=== PATIENT | female | born 1990 | race Caucasian/White ===

== ENCOUNTER 2018-01-09 19:29 | Inpatient (IN) | payer OTHER ==
[~2018-01-09] VITALS: Ht 165.1 cm; Wt 59.0 kg
[~2018-01-09 19:29] MED LIST: PREN-127 PO
[2018-01-09 19:46] VITALS: BP 120/60
[2018-01-09] MEDS ORDERED: FAMOTIDINE(*) 20MG/50ML PREMIX 50 ML IVPB PRN ×2 (20:49)
[2018-01-09] MEDS ORDERED: ACETAMINOPHEN 325 MG TAB PO PRN (20:50)
[2018-01-09] MEDS ORDERED: FLUSH 10 ML SYR IVP PRN ×2 (20:50)
[2018-01-09] MEDS ORDERED: LIDOCAINE 1% LOCAL 300 MG/30ML INJ PRN (20:50)
[2018-01-09] MEDS ORDERED: METOCLOPRAMIDE 10 MG/2 ML SDV IVP PRN ×2 (20:50)
[2018-01-09] MEDS ORDERED: TERBUTALINE SULF 1 MG/ML VIAL SUBQ PRN (20:50)
[2018-01-09] MEDS ORDERED: ONDANSETRON 4 MG ODT TABDP SL PRN (20:50)
[2018-01-09] MEDS ORDERED: DINOPROSTONE 10 MG INSERT PV ONE (20:50)
[2018-01-09] MEDS ORDERED: LIDOCAINE/SOD BICARB 8.4% SYR SC PRN (20:50)
[2018-01-09 21:12] LABS: PLATELET COUNT, AUTOMATED 203 K/uL (150-450)
[2018-01-09] MEDS: DLR(*) 1000 ML BAG 1,000 ML IV SCH (21:30)
--- NOTE | 2018-01-09 22:41 | RADIOLOGY IMAGING REPORT ---
FACILITY: [facility] PATIENT NAME: Shamar Miller : 1990 MR: [id number] V: [id number] EXAM DATE: ORDERING PHYSICIAN: MITCH DAVIDSON TECHNOLOGIST: Location: [facility] Patient: Shamar Miller : 1990 Visit/Account:[id number] Date of Sevice: 01/09/2018 biophysical profile Indication: Nonreactive NST. Reported gestational age 39 weeks 2 days. Comparison: None available Findings: breathing movement: 2/2 Gross body movement: 2/2 tone: 2/2 Amniotic fluid volume: 2/2 There is a left anterior placenta without evidence of placenta previa. There is a single live intraut erine gestation with heart tones measuring 121 beats per minute. Four quadrant amniotic fluid index is normal measuring 17.97 cm. The largest pocket measures 5.6 cm. IMPRESSION: 1. Normal biophysical profile. 2. Upper limits of normal amniotic fluid index. Report Dictated By: Cleveland Mccullough at 01/09/2018 10:33 PM Report E-Signed By: Cleveland Mccullough at 01/09/2018 10:36 PM [id number]
[2018-01-09 22:43] VITALS: BP 120/60; Ht 165.1 cm; Wt 59.0 kg
[2018-01-10] MEDS: LR(*) 1000 ML BAG 1,000 ML IV PRN ×2 (01:36→13:23)
[2018-01-10] MEDS: DLR(*) 1000 ML BAG 1,000 ML IV SCH (04:49)
[2018-01-10] MEDS ORDERED: BUPIVACAINE 0.5% INJ 30ML VIAL EPI PRN (13:15)
[2018-01-10] MEDS ORDERED: fentaNYL CITR 100 MCG/2 ML AMP IT PRN (13:15)
[2018-01-10] MEDS ORDERED: BUPIVACAINE 0.25% MPF INJ EPI PRN (13:15)
[2018-01-10] MEDS ORDERED: FENTANYL/ROPIVACAINE 100 ML BAG EPI PRN (13:15)
[2018-01-10] MEDS ORDERED: ePHEDrine 25 MG/5 ML DISP.SYR IVP PRN (13:15)
[2018-01-10] MEDS ORDERED: LIDO/EPI 2% MPF 1:200,000 20ML EPI PRN (13:15)
[2018-01-10] MEDS ORDERED: LIDOCAINE/PF 2% 200MG/10ML AMP 200 MG/10 ML AMPUL EPI PRN (13:15)
[2018-01-10] MEDS ORDERED: OXYTOCIN 30 UNIT/D5LR 500 ML 500 ML IV PRN (13:24)
[2018-01-10] MEDS ORDERED: OXYTOCIN 30 UNIT/D5LR 500 ML 500 ML ONE (13:34)
[2018-01-10] MEDS ORDERED: EPIDURAL KEYS XX PRN (14:00)
--- NOTE | 2018-01-10 14:47 | Procedure Note ---
Anesthetic Placement Note Anesthesia Plan: LEB Permit for Anesthesia Signed: Yes Anesthesia Technique: Patient Sitting Anesthesia Prep: Chlorhexidine Interspace: L 3-4 Local Anesthetic: 1% Lidocaine Amount Local - cc's: 3 Anesthesia Needle: 17g Touhy/Schliff Anesthesia Attempts: 1 Loss of Resistance: Air Depth of [place] (cm): 3.5 Cerebral Spinal Fluid: No Catheter Insertion (cm): 5 Catheter Type: Barton - Spring Wound Epidural Dressing: Tegaderm Anesthesia Tray: Lot Number ([id number]), Expiration Date (2018-07-13), Reference Number ([id number]) Comment: Epidural placed without difficulty. I entered the room at 1335 and the catheter was placed at 1345 with test dose at 1346 was negative. Bolus of 12 mls of 0.125% ropivicaine with fentanyl bag. Continous infusion of same started at 1407. Pain score of 0. Anesthesia Medications: Epidural Test Dose: Dose - mL (5 ml), Negative Epidural Loading Dose: 0.2% Ropivicaine, With Fentanyl 2mcg/ml, Dose - ml (12 ml), Time (1352) Epidural Infusion: 0.2% Ropivicaine, With Fentanyl 2mcg/ml, Start Time: (1407) Epidural Pump Setting: Bolus Dose - mL (5), Lockout - Minutes (10), Maintenance Rate - mL/hr (12), Maximum per Hour - mL (22) Complications: None SUSANNA PORTILLO CRNA Jan 10, 2018 14:47
--- NOTE | 2018-01-10 15:08 | History & Physical ---
History of Present Illness Age of Patient: 27 : 1 Para or TPAL: 0 EDC per U/S: January 14, 2018 Estimated Gestational Age: 39 Chief Complaint induction of labor History of Present Illness Presented last night for IOL for IUGR with reassuring testing. BPP 04/20 last night. otherwise uncomplicated. Past Medical, Surgical, Family and Obstetric Histories reviewed. Please see ACOG chart. History Allergies: Uncoded Allergies: Topical Antifungals (Allergy, Severe, Rash/Hives, 01/09/18) Med Rec Home Meds Reported Medications Vits W-Ca,Fe,Fa(<1MG) ( VITAMINS) 1 Each Tablet, 1 EACH PO DAILY, TAB 09/06/17 Review of Systems All Systems Reviewed/Normal: Yes, Except as Noted Other as per HPI Exam General Exam Vital Signs Vital Signs Date Time Temp Pulse Resp B/P (MAP) Pulse Ox O2 Delivery O2 Flow Rate FiO2 01/09/18 22:43 97.7 82 20 120/60 (80) 85 Room Air General Apperance: Alert/Awake/No Acute Distress Neuro: No Gross deficits Eyes: Normal Extraocular Movement & Vison Cardiovascular: Regular Rate and Rhythm Respiratory: No Respiratory Distress, Clear to Auscultation Abdomen: Soft, Non-Tender, Non-Distended Integumentary: Skin Intact without Lesions or Rash Psychological: Alert & Oriented X3, Appropriate Mood & Affect Vaginal Discharge/Fluid?: Bloody Show, Clear Fluid (on amniotomy) Cervical Dialation: 4 Cervical Effacement (%): 80 Cervical Consistency: Soft Cervical Position: Anterior Station: -2 Presentation: Vertex Fetus FHT Accelerations: 15X15 FHT Category: I Medical Decision Making Data Points Result Diagram: 01/09/182103 VTE Prophylasis: Adult Pharmacological Contraindicati: Pt at Low Risk for VTE Mechanical Contraindications: Pt at Low Risk for VTE Assessment and Plan INSPECTOR PRECISION Plan: Routine Labor/Induct Care Problems: (1) Intrauterine growth restriction (IUGR) affecting care of mother, third trimester, single gestation Assessment & Plan: Received Cervidil last night and progressed with this to now. Has started on Pitocin and having regular contractions every 3-4 min. Everything is looking stable currently. Epidural in place. AROM with clear fluid noted. Will continue to augment with Pitocin as needed and expecting . LUIS MEDINA MD Jan 10, 2018 15:08
[2018-01-10] MEDS ORDERED: cefOXitin/DEX(*) 2GM/50ML PREM 50 ML IVPB PRN (16:35)
[2018-01-10] MEDS ORDERED: APAP/HYDROCODONE 325/5 TAB PO PRN (23:15)
[2018-01-10] MEDS ORDERED: INFLUENZA VIRUS VAC 0.5 ML SYR IM ONLY ONE (23:15)
[2018-01-10] MEDS ORDERED: BENZOCAINE 20% 60 ML BTL TP PRN (23:15)
[2018-01-10] MEDS ORDERED: MAGNESIUM HYDROXIDE* 30ML UDCP PO PRN (23:15)
[2018-01-10] MEDS ORDERED: ACETAMINOPHEN 325 MG TAB PO PRN (23:15)
[2018-01-10] MEDS ORDERED: GLYCERIN/WITCH HAZEL LEAF 1 PK TOP PRN (23:15)
[2018-01-10] MEDS ORDERED: HYDROCORTISONE 2.5% CR 30GM TB PR PRN (23:15)
[2018-01-10] MEDS ORDERED: LANOLIN OINT 7 GM TUBE TP PRN (23:15)
--- NOTE | 2018-01-10 23:24 | OB Delivery Note ---
Delivery Note Vaginal Delivery Type: Spont. Vaginal Delivery Delivery Date: Jan 10, 2018 Delivery Time: 22:55 Estimated Gestational Age(wks): 39.3 Delivery Anesthesia: Epidural Sex: Female Infant Weight (gms): 2964 Repair Needed: Laceration, Labial (left), 1st Degree Estimated Blood Loss: 100 Delivery Complications: Laceration, Nuchal Cord (x1) Notes: Presented for IOL due to IUGR followed till 39 weeks. Unfavorable cervix last night with a dupont score of 3. Received Cervidil overnight and transitioned to Pitocin today at midday when she was 4 cm. Received epidural block at 1400 and progressed to 5 cm by 1600. At 1811 she was 8 cm and completely dilated at 1951. She was allowed to labor down and began pushing. Pushing effectively in MELIDA position, she brought baby to . Osullivan removed, Ritkin maneuver performed to stabilize the perineum and head delivered spontaneously along with a hand and anterior shoulder without manipulation. Nuchal cord x 1 reduced. Remainder of baby delivered spontaneously. Placenta delivered spontaneously and intact. First degree perineal lac and left labial lac repaired with 3-0 chromic. No complications. Buttonhole Maker Hand in Attendence: No Copies to: LUIS MEDINA MD, TRAVIS MD Jan 10, 2018 23:24
[2018-01-11] VITALS (8 sets, daily range): BP systolic 102–113; BP diastolic 58–65
--- NOTE | 2018-01-11 00:15 | Anesthesia Progress Note ---
SUSANNA PORTILLO CRNA January 11, 2018 00:15
--- NOTE | 2018-01-11 00:16 | Anesthesia Post Eval Note ---
Anesthesia Post Eval Note Pt able to participate in Eval: Yes Cardiovascular Status: Satisfactory Respiratory Status: Satisfactory Pain Managment: Satisfactory PO Nausea/Vomiting: Satisfactory Mental Status: Satisfactory Post-Op Hydration Status: Satisfactory Anesthesia Type: LEB Anesthesia Tolerance: no complaints or problems noted SUSANNA PORTILLO CRNA January 11, 2018 00:16
[2018-01-11] MEDS: IBUPROFEN 800 MG TAB PO SCH ×3 (01:07→16:59)
--- NOTE | 2018-01-11 08:47 | OB/GYN Progress Note ---
OB Subjective Progress Notes Subjective Pain controlled, Tolerating diet and activity. Baby . Normal lochia. GI: NEG Nausea, NEG Vomiting Pain: Mild OB Objective Physical Exam Vital Signs Date Time Temp Pulse Resp B/P (MAP) Pulse Ox O2 Delivery O2 Flow Rate FiO2 01/11/18 03:50 97.4 63 16 102/59 (73) Room Air 01/11/18 01:09 96 General Appearance: Alert/Awake/No Acute Distress Neurological: No Gross deficits Eyes: Normal Extraocular Movement & Vison Cardiovascular: Regular Rate and Rhythm Respiratory: No Respiratory Distress, Clear to Auscultation Abdomen: Fundus Firm Extremities: No Edema Integumentary: Skin Intact without Lesions or Rash Psychological: Alert & Oriented X3, Appropriate Mood & Affect Result Diagram: 01/11/18 0555 Assessment and Plan Problems: (1) Intrauterine growth restriction (IUGR) affecting care of mother, third trimester, single gestation (2) care following vaginal delivery Assessment & Plan: Pain controlled, Tolerating diet and activity. Baby . Normal lochia. MITCH DAVIDSON MD January 11, 2018 08:47
[2018-01-11] MEDS: DOCUSATE CALCIUM 240 MG CAP PO SCH ×2 (09:12→20:15)
[2018-01-11] MEDS ORDERED: MEASLES,MUMP,RUBELLA VAC 0.5ML SUBQ ONE (10:00)
[2018-01-11] MEDS ORDERED: DIPHTH/TETANUS/ACEL. PERTUSSIS IM ONLY ONE (10:00)
--- NOTE | 2018-01-11 12:58 | OB/GYN Progress Note ---
OB Subjective Progress Notes Subjective patient feeling weak and having trouble waking to bathroom GI: NEG Nausea, NEG Vomiting Pain: Mild OB Objective Physical Exam Vital Signs Date Time Temp Pulse Resp B/P (MAP) Pulse Ox O2 Delivery O2 Flow Rate FiO2 01/11/18 09:15 98.1 67 18 109/65 (80) Room Air 01/11/18 01:09 96 Intake and Output 01/12/18 07:00 Intake Total 0 ml Balance 0 ml Intake Oral 0 ml General Appearance: Alert/Awake/No Acute Distress Neurological: No Gross deficits Eyes: Normal Extraocular Movement & Vison Cardiovascular: Regular Rate and Rhythm Respiratory: No Respiratory Distress, Clear to Auscultation Abdomen: Fundus Firm Extremities: No Edema Integumentary: Skin Intact without Lesions or Rash Psychological: Alert & Oriented X3, Appropriate Mood & Affect Result Diagram: 01/11/18 0555 Assessment and Plan Problems: (1) Intrauterine growth restriction (IUGR) affecting care of mother, third trimester, single gestation (2) care following vaginal delivery (3) Acute blood loss anemia Assessment & Plan: patient is considering risks, reviewed symptoms and concern for her and benefits to her. Is considering transfusion. MITCH DAVIDSON MD January 11, 2018 12:58
[2018-01-12 01:03] VITALS: BP 109/60
[2018-01-12] MEDS: IBUPROFEN 800 MG TAB PO SCH ×2 (01:03→08:42)
[2018-01-12] MEDS: DOCUSATE CALCIUM 240 MG CAP PO SCH (08:41)
--- NOTE | 2018-01-12 08:45 | OB/GYN Progress Note ---
OB Subjective Progress Notes Subjective Pain controlled, Tolerating diet and activity. Baby . Normal lochia. GI: NEG Nausea, NEG Vomiting : Voiding Well Pain: Mild OB Objective Physical Exam Vital Signs Date Time Temp Pulse Resp B/P (MAP) Pulse Ox O2 Delivery O2 Flow Rate FiO2 01/12/18 01:03 98.6 72 16 109/60 (76) Room Air 01/11/18 01:09 96 General Appearance: Alert/Awake/No Acute Distress Neurological: No Gross deficits Eyes: Normal Extraocular Movement & Vison Cardiovascular: Regular Rate and Rhythm Respiratory: No Respiratory Distress, Clear to Auscultation Abdomen: Fundus Firm Extremities: No Edema Integumentary: Skin Intact without Lesions or Rash Psychological: Alert & Oriented X3, Appropriate Mood & Affect Result Diagram: 01/11/18 0555 Assessment and Plan Problems: (1) Intrauterine growth restriction (IUGR) affecting care of mother, third trimester, single gestation (2) care following vaginal delivery Assessment & Plan: Pain controlled, Tolerating diet and activity. Baby . Normal lochia. MITCH DAVIDSON MD January 12, 2018 08:45
[2018-01-12] MEDS ORDERED: IBUP800T37 PO (08:46)
[2018-01-12] MEDS ORDERED: HYDR2TAB4 PO (08:46)
--- NOTE | 2018-01-12 08:48 | OB/GYN Discharge Summary ---
Discharge Summary Reason for Hosp/Final Diag: (1) Intrauterine growth restriction (IUGR) affecting care of mother, third trimester, single gestation (2) care following vaginal delivery Hospital Course & Plan: Vaginal delivery, on day 2, Pain controlled, Tolerating diet and activity. Baby . Normal lochia. Lates Vital Signs Vital Signs Date Time Temp Pulse Resp B/P (MAP) Pulse Ox O2 Delivery O2 Flow Rate FiO2 01/12/18 01:03 98.6 72 16 109/60 (76) Room Air 01/11/18 01:09 96 Weight (Pounds): 130 Result Diagram: 01/11/18 0555 Condition: Improved Discharge: Home, Self Fdc Meds Active Scripts Ibuprofen (IBUPROFEN) 800 Mg Tablet, 1 TAB PO Q8H, #30 TAB 0 Refills Take with food every 8 hours. Prov:MITCH FERNANDEZ MD 01/12/18 Hydromorphone Hcl (HYDROMORPHONE HCL) 2 Mg Tablet, 2-4 MG PO Q4H for PAIN, #20 TAB 0 Refills Prov:MITCH FERNANDEZ MD 01/12/18 Reported Medications Vits W-Ca,Fe,Fa(<1MG) ( VITAMINS) 1 Each Tablet, 1 EACH PO DAILY, TAB 09/06/17 Follow up with: Dr. Fernandez [phone] Discharge Diet: As Tolerates Discharge Activity: Pelvic Rest Copies to: MITCH FERNANDEZ MD, JOHN MD January 12, 2018 08:48
[2018-01-12 09:00] VITALS: BP 135/67
[2018-01-12 09:45] VITALS: BP 119/57
== END 2018-01-12 10:40 | disposition home or self-care (01) | DRG 775 ==
LOC: OB 19:29
PROVIDERS: ADMIT Obstetrics & Gynecology; ATTEND Obstetrics & Gynecology
PROC: 3E0P7VZ Introduction of Hormone into Female Reproductive, Via Natural or Artificial Opening (ICD-10-PCS; 2018-01-09)
PROC: 3E033VJ Introduction of Other Hormone into Peripheral Vein, Percutaneous Approach (ICD-10-PCS; 2018-01-09)
PROC: 10E0XZZ Delivery of Products of Conception, External Approach (ICD-10-PCS; principal; 2018-01-10)
PROC: 10907ZC Drainage of Amniotic Fluid, Therapeutic from Products of Conception, Via Natural or Artificial Opening (ICD-10-PCS; 2018-01-10)
PROC: 0HQ9XZZ Repair Perineum Skin, External Approach (ICD-10-PCS; 2018-01-10)
PROC: 3E0334Z Introduction of Serum, Toxoid and Vaccine into Peripheral Vein, Percutaneous Approach (ICD-10-PCS; 2018-01-11)
DX: O36.5930 Maternal care for other known or suspected poor fetal growth, third trimester, not applicable or unspecified (principal); O36.0130 Maternal care for anti-D [Rh] antibodies, third trimester, not applicable or unspecified; O69.81X0 Labor and delivery complicated by cord around neck, without compression, not applicable or unspecified; O70.0 First degree perineal laceration during delivery; Z3A.39 39 weeks gestation of pregnancy; Z37.0 Single live birth; Z88.8 Allergy status to other drugs, medicaments and biological substances
CPT/HCPCS: 36415; 76818; 85025; 85027; 85460; 85461; 86850; 86870; 86900; 86901; J2590; J2791; J7120